=== PATIENT | male | born 1990 | race Caucasian/White ===

== ENCOUNTER 2018-01-21 20:28 | Emergency (ER) | payer BC ==
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
[2018-01-21 22:49] VITALS: O2SAT 98
[2018-01-21 22:50] VITALS: BP 112/83; PULSE 87
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
== END 2018-01-21 23:04 | disposition home or self-care (01) ==
LOC: ED 20:28
DX: S00.83XA Contusion of other part of head, initial encounter (principal); F10.129 Alcohol abuse with intoxication, unspecified; R51 Headache; M79.671 Pain in right foot; S91.104A Unspecified open wound of right lesser toe(s) without damage to nail, initial encounter; V29.9XXA Motorcycle rider (driver) (passenger) injured in unspecified traffic accident, initial encounter; Z79.899 Other long term (current) drug therapy
CPT/HCPCS: 36415; 70450; 72125; 73630; 80307; 99284; G0480